=== PATIENT | male | born 1960 | race Caucasian/White ===

== ENCOUNTER → 2016-03-03 | Outpatient (REF) ==
[2016-03-03 14:05] LABS: PROTHROMBIN TIME 11.5 SECONDS (9.7-12.8)
== END ==
LOC: ZMSC 13:43
PROVIDERS: Orthopaedic Surgery
DX: Z01.89 Encounter for other specified special examinations (principal)

== ENCOUNTER 2017-01-25 15:45 | Inpatient (IN) | payer OTHER ==
[~2017-01-25] VITALS: Ht 188 cm; Wt 104.2 kg
[2017-02-07] VITALS (16 sets, daily range): BP systolic 115–130; BP diastolic 56–85; PULSE 20–78; TEMP 97.3–98.5
[2017-02-07 10:16] LABS: HEMATOCRIT 43.7 % (42.0-52.0); HEMOGLOBIN 15.2 g/dl (13.5-18.0); MEAN CELL VOLUME 93 fl (80.0-100.0); MEAN CORPUSCULAR HEMOGLOBIN 32 pg (27.0-31.0); MEAN CORPUSCULAR HGB CONC 35 g/dl (33.0-37.0); MEAN PLATELET VOLUME 9.8 fl (7.4-10.4); PLATELET COUNT 258 K/mm3 (130-400); RED BLOOD COUNT 4.71 M/mm3 (4.20-5.60); REDCELL DISTRIBUTION WIDTH-CV 12.9 % (11.5-14.5)
[2017-02-07 10:25] LABS: CALCIUM 9.9 mg/dL (8.4-10.2); CREATININE, serum 0.86 mg/dL (0.66-1.25); POTASSIUM 4.4 mmol/L (3.4-5.0)
[2017-02-07] MEDS ORDERED: LOVENOX 100100 MG/ML SQ (10:52)
[2017-02-07] MEDS ORDERED: ACCUPRIL40MGTAB PO (10:52)
[2017-02-07] MEDS ORDERED: COUMADIN 77.5 MG/TAB PO (10:53)
[2017-02-07] MEDS ORDERED: VALTREX 50500 MG/TAB PO (10:54)
[2017-02-07] MEDS ORDERED: LEXAPRO 10MG10 MG PO (10:55)
[2017-02-07] MEDS ORDERED: ZYLOPRIM 300MG300 MG PO (10:55)
[2017-02-07] MEDS ORDERED: HYGROTON 2525 MG/TAB PO (10:58)
[2017-02-07] MEDS ORDERED: TAMBOCOR150 MG PO (11:01)
[2017-02-07] MEDS ORDERED: CRESTOR40 MG PO (11:01)
[2017-02-07] MEDS ORDERED: CPAP (11:02)
[2017-02-07] MEDS ORDERED: NORCO 325 MG-51 TAB PO (11:02)
[2017-02-07 17:13] LABS: BASO % 0.3 % (0.0-2.0); EOS % 0.1 % (0-4.0); GRAN # 13.8 (1.4-6.5); GRAN % 91.9 % (42.2-75.2); HEMATOCRIT 41.8 % (42.0-52.0); HEMOGLOBIN 14.4 g/dl (13.5-18.0); LYMPH # 0.9 (1.2-3.4); LYMPH % 5.8 % (20.0-51.0); MEAN CELL VOLUME 94 fl (80.0-100.0); MEAN CORPUSCULAR HEMOGLOBIN 32 pg (27.0-31.0); MEAN CORPUSCULAR HGB CONC 34 g/dl (33.0-37.0); MONO # 0.2 (0.1-0.6); MONO % 1.1 % (1.7-9.3); PLATELET COUNT 234 K/mm3 (130-400); RED BLOOD COUNT 4.46 M/mm3 (4.20-5.60); REDCELL DISTRIBUTION WIDTH-CV 13.1 % (11.5-14.5)
[2017-02-08] VITALS (9 sets, daily range): BP systolic 105–143; BP diastolic 55–80; PULSE 56–87; TEMP 97.4–98.6
[2017-02-08 07:20] LABS: BASO % 0.2 % (0.0-2.0); GRAN # 9.5 (1.4-6.5); GRAN % 83.5 % (42.2-75.2); HEMATOCRIT 39.7 % (42.0-52.0); HEMOGLOBIN 13.5 g/dl (13.5-18.0); LYMPH # 1.2 (1.2-3.4); LYMPH % 10.2 % (20.0-51.0); MEAN CELL VOLUME 94 fl (80.0-100.0); MEAN CORPUSCULAR HEMOGLOBIN 32 pg (27.0-31.0); MEAN CORPUSCULAR HGB CONC 34 g/dl (33.0-37.0); MEAN PLATELET VOLUME 10.1 fl (7.4-10.4); MONO # 0.6 (0.1-0.6); MONO % 5.6 % (1.7-9.3); PLATELET COUNT 238 K/mm3 (130-400); RED BLOOD COUNT 4.23 M/mm3 (4.20-5.60)
[2017-02-09 05:25] VITALS: BP 121/67; PULSE 59; TEMP 98.2
[2017-02-09 09:14] VITALS: BP 113/66; PULSE 62
== END 2017-02-09 12:33 | disposition home or self-care (01) | DRG 658 ==
LOC: SURG 02-02 13:30 → INPTSU 02-07 09:25 → SURG 02-07 12:30
PROVIDERS: Nurse Anesthetist, Certified Registered; Urology
PROC: 8E0W4CZ Robotic Assisted Procedure of Trunk Region, Percutaneous Endoscopic Approach (ICD-10-PCS; 2017-02-07)
PROC: 0TT14ZZ Resection of Left Kidney, Percutaneous Endoscopic Approach (ICD-10-PCS; principal; 2017-02-07 14:00)
DX: C64.2 Malignant neoplasm of left kidney, except renal pelvis (principal); I10 Essential (primary) hypertension; E83.119 Hemochromatosis, unspecified; I48.91 Unspecified atrial fibrillation
CPT/HCPCS: A4314; A9284; J0690; J1100; J1170; J1200; J1644; J1650; J2270; J2370; J2405; J2704; J3010; J3480; J7050; J7120